=== PATIENT | male | born 1990 | race Caucasian/White ===

== ENCOUNTER 2024-08-19 06:02 | Day surgery (SDC) | payer OTHER ==
[~2024-08-19] VITALS: Ht 188 cm; Wt 119.7 kg
[2024-08-19] VITALS (9 sets, daily range): BP systolic 112–149; BP diastolic 67–92
[~2024-08-19 06:02] MED LIST: BEET ROOT500 MG; CRUTCH2 USE; Clomiphene Citr50 MG PO; HYDACE5 PO; LION S MANE; MULTI-VITAMIN1 EAC2 PO
[2024-08-19] MEDS ORDERED: CeFAZolin Sodium 2,000 MG in NS 100 ML IV SCH (06:15)
[2024-08-19] MEDS ORDERED: Lactated Ringer's 1,000 ML IV SCH (06:15)
--- NOTE | 2024-08-19 06:39 | NUR ---
Ambulatory in Day SurgeryPre-Op teaching done. Pt verbalizes understanding. History, Chart, Medications and Allergies reviewed before start of procedure.Patient confirms NPO status and agrees with scheduled surgery. Patient reports completing Chlorhexadine shower X2 prior to admission to hospital.Patient States Post-Procedure ride home has been arranged. PT HAS RUNNY NOSE BUT REPORTS IT'S D/T CHRONIC SINUSISTIS.
[2024-08-19] MEDS ORDERED: Lidocaine HCl 4% 5 ML SDA ONE (06:42)
[2024-08-19] MEDS ORDERED: propofoL 200 ML IV ONE (06:42)
[2024-08-19] MEDS ORDERED: Dexmedetomidine HCL 200 MCG / 2 ML ONE (06:42)
[2024-08-19] MEDS ORDERED: Metoclopramide HCl 5MG / ML 2ML Vial ONE (06:52)
[2024-08-19] MEDS ORDERED: Ondansetron HCl 2 MG / ML 2ML Vial ONE (06:52)
[2024-08-19] MEDS ORDERED: Lidocaine HCl 2% 20 ML MDV ONE (06:52)
[2024-08-19] MEDS ORDERED: Dexamethasone Sod Phos 10 MG/ML 1ML VIAL ONE (06:52)
[2024-08-19] MEDS ORDERED: Rocuronium Bromide 10 MG/ML 5ML Injection IV ONE ×2 (06:52→08:46)
[2024-08-19] MEDS ORDERED: Ketorolac Tromethamine 30mg Vial ONE (06:53)
[2024-08-19] MEDS ORDERED: HYDROmorphone HCl 0.5 MG/0.5 ML SYR ONE ×2 (06:53)
[2024-08-19] MEDS ORDERED: propofoL 40 ML IV ONE (06:53)
[2024-08-19] MEDS ORDERED: Sugammadex Sodium 200 MG/2ML SDV (100 MG/ML) ONE (06:53)
[2024-08-19] MEDS ORDERED: Acetaminophen 500 MG Tab PO ONE (07:05)
[2024-08-19] MEDS ORDERED: Bupivacaine 0.5% HCl 5 MG/ML 30MLVIAL ONE (07:05)
[2024-08-19] MEDS ORDERED: CeFAZolin Sodium 3,000 MG in NS 100 ML IV SCH (07:20)
[2024-08-19] MEDS ORDERED: CeFAZolin Sodium 3,000 MG VIAL ONE (07:26)
[2024-08-19] MEDS ORDERED: FentaNYL Citrate 50 MCG/ML 2 ML Injection ONE (07:36)
[2024-08-19] MEDS ORDERED: CeFAZolin Sodium 1000 mg Vial ONE (07:38)
[2024-08-19] MEDS ORDERED: Ketamine HCl 100 MG / ML 5ML Vial ONE (08:05)
[2024-08-19] MEDS ORDERED: Glycopyrrolate 0.2 MG/ML 5ML VIAL ONE (08:05)
[2024-08-19] MEDS ORDERED: HYDROcodone 5-APAP 325 TAB PO PRN (09:10)
--- NOTE | 2024-08-19 10:07 | NUR ---
Patient up to Ambulate independently. Gait steady. Dressing to procedure site clean, dry, intact with no visible drainage, swelling, erythema or bruising noted. X3 Sites. Patient States Post-Procedure ride home has been arranged. Discharged via wheelchair to private car for ride home.
== END 2024-08-19 10:10 | disposition home or self-care (01) ==
LOC: ORSCMMR 06:02 → ORD 07:30 → ORSCMMR 10:10
DX: K40.90 Unilateral inguinal hernia, without obstruction or gangrene, not specified as recurrent (principal); F17.210 Nicotine dependence, cigarettes, uncomplicated
CPT/HCPCS: A9270; C1781; J0690; J1100; J1171; J1885; J2003; J2405; J2704; J2765; J3010; J7120